=== PATIENT | male | born 1975 | race Caucasian/White ===

== ENCOUNTER → 2020-12-23 08:29 | Outpatient (CLI) | payer OTHER, SELFPAY ==
--- NOTE | ~2020-12-23 | XR_ITS ---
XR shoulder LT min 2V DATE: 12/23/2020 09:01 INDICATION: Left shoulder pain TECHNIQUE: 4 views COMPARISON: None FINDINGS: No fracture or dislocation, periosteal reaction or bone destruction or abnormal soft tissue calcification. IMPRESSION: No significant abnormality Reviewed, dictated and finalized at location A. IMPRESSION: No significant abnormality
--- NOTE | ~2020-12-23 | XR_ITS ---
EXAMINATION: XR hand RT min 3V INDICATION: Right hand pain TECHNIQUE: Three views of the right hand are obtained. COMPARISON: None available FINDINGS: There is no fracture, dislocation, or subluxation. There is mild polyarticular osteoarthrit is of the interphalangeal joints as well as at the first metacarpophalangeal joint. A subchondral cys t is noted in the head of the fourth metacarpal. There is a subtle circumscribed lucency in the scaph oid, consistent with a benign fibrous lesion. The soft tissues are unremarkable. IMPRESSION: 1. Mild osteoarthritis. Reviewed, dictated and finalized at location B. IMPRESSION: 1. Mild osteoarthritis.
== END ==
PROVIDERS: PCP Family Medicine; Visit Provider Nurse Practitioner Family
DX: M25.512 Pain in left shoulder (principal); M79.641 Pain in right hand; M19.041 Primary osteoarthritis, right hand
CPT/HCPCS: 73030; 73130